=== PATIENT | male | born 1965 | race Caucasian/White ===

== ENCOUNTER 2017-04-18 10:29 | Emergency (ER) | payer OTHER ==
[2017-04-18 10:34] VITALS: TEMP 98.6; BMI 23.7
--- NOTE | 2017-04-18 10:44 | PDOC ---
History of Present Illness - General Chief Complaint: Redness To Affected Area Stated Complaint: RT 3RD TOE REDNESS, SWELLING Time Seen by Provider: 04/18/17 10:34 History Source: Patient Exam Limitations: No Limitations - History of Present Illness Initial Comments: 04/18/17 10:39 51 yo male wtih h/o dM here with c/o right third toe infection. states has nueropathy, and bought new shoes recently. today took shoe off and noticed redness and swelling right third toe. has small ulcer on bottom of toe. no f/c. no change to medications. saw pcp dr Leon today who was hesitant to start abx as pt has had recent gi issues. last saw slip mixer on monday ( 4 days ago) had colonoscopy and was diagnosed with polyps. has been on intermittent abx for colitis with mucous or pus. no abd pain. no other complaints. redness limited to toe.. Past History - Past Medical History Allergies/Adverse Reactions: Allergies Allergy/AdvReac Type Severity Reaction Status Date / Time lamotrigine [From Lamictal] Allergy Rash Verified 04/18/17 10:46 Home Medications: Ambulatory Orders Aspirin [ASA -] 325 mg PO DAILY 04/18/17 Atorvastatin Ca [Lipitor] 40 mg PO HS 04/18/17 Clindamycin [Cleocin -] 300 mg PO TID #1 capsule 04/18/17 Clonazepam [KlonoPIN] 0.25 mg PO BID 04/18/17 Escitalopram Oxalate [Lexapro -] 20 mg PO DAILY 04/18/17 Gabapentin 300 mg PO TID 04/18/17 Insulin Aspart [Novolog] unit SQ TID 04/18/17 Insulin Glargine,Hum.rec.anlog [Lantus (nf)] 65 units SQ DAILY 04/18/17 Labetalol HCl [Normodyne -] 300 mg PO BID 04/18/17 Lisinopril/Hydrochlorothiazide [Lisinopril-Hctz 20-25 mg Tab] 1 each PO DAILY Trazodone HCl 100 mg PO BID 04/18/17 Anemia: No Asthma: No Cancer: No Cardiac Disorders: No Hx Myocardial Infarction: No CVA: Yes Diabetes: Yes HTN: Yes - Surgical History Appendectomy: Yes - Psycho/Social/Smoking Cessation Hx Anxiety: No Suicidal Ideation: No Smoking History: Never smoked Information on smoking cessation initiated: No Hx Alcohol Use: No Review of Systems - Review of Systems Constitutional: No: Chills, Diaphoresis HEENTM: No: Eye Pain, Blurred Vision Respiratory: No: Cough, Orthopnea Cardiac (ROS): No: Chest Pain, Edema ABD/GI: Yes: Diarrhea : No: Burning, Dysuria Integumentary: Yes: Other (toe redness , ulceration). No: Bruising, Change in Color All Other Systems: Reviewed and Negative *Physical Exam - Vital Signs Last Vital Signs Temp Pulse Resp BP Pulse Ox 98.6 F 87 18 164/100 98 04/18/17 10:30 04/18/17 10:30 04/18/17 10:30 04/18/17 10:30 04/18/17 10:30 - Physical Exam General Appearance: Yes: Appropriately Dressed HEENT: positive: CHLESEA Neck: positive: Trachea midline Respiratory/Chest: positive: Lungs Clear, Normal Breath Sounds. negative: Chest Tender, Respiratory Distress Cardiovascular: positive: Regular Rhythm, Regular Rate, S1, S2. negative: Edema Gastrointestinal/Abdominal: positive: Normal Bowel Sounds, Flat, Soft. negative : Tender Extremity: positive: Normal Capillary Refill, Normal Inspection, Other (right third toe with erythema to mcp joint, no exudate. small superficial ulceration tip, no exudate. ) Integumentary: positive: Normal Color, Dry, Warm, Erythema, Other (erythema to right third toe. ) Neurologic: positive: Fully Oriented, Alert, Normal Mood/Affect ED Treatment Course - LABORATORY CBC & Chemistry Diagram: 04/18/17 10:50 04/18/17 10:50 - RADIOLOGY Radiology Studies Ordered: Category Date Time Status FOOT-RIGHT [RAD] Stat Radiology 04/18/17 10:35 Ordered Medical Decision Making - Medical Decision Making 04/18/17 10:44 51 yo DM her with toe redness. differential cellulitis vs. osteo, early ulceration. plan abx, labs xray r/o osteo. britt outpt abx with podiatry followup 04/18/17 12:49 pt labs unremarkable. except sugar 350. wbc normal. afebrile. plan tx clindamycin 900mg. d/w pcp DR Leon, who can see pt for wound check in 48 hours. also has number for podiatry for followup. xray negative for sx of osteo. rpt sugar after insulin 275 04/18/17 12:55 04/18/17 14:18 *DC/Admit/Observation/Transfer Diagnosis at time of Disposition: Cellulitis - Discharge Dispostion Disposition: HOME Condition at time of disposition: Improved - Prescriptions Prescriptions: Clindamycin [Cleocin -] 300 mg PO TID #1 capsule - Referrals Referrals: Amish Leon [Non Staff, Medical] - - Patient Instructions Printed Discharge Instructions: Cellulitis Additional Instructions: you need to follow up with Dr Leon, within 48 hours. go for appointment on Monday04/20/17. call today to confirm [phone]. let them know you were seen in the emergency room and Dr. Leon wants to see you on 04/20/17. take antiobiotic clindamycin 300 mg three times daily x 7 days. return for fever. worsening redness or any concerns. you should soak your feet in warm soapy water twice daily. wear loose fitting shoe. and check toes daily. you also need to see a cast iron dipper. call to schedule followup this week. return for any worsening redness, foul drainage or any concerns.
[2017-04-18 11:13] LABS: EOSINOPHIL 1.1 % (0-4.5); MCH 28.8 pg (25.7-33.7); MCHC 33.9 g/dl (32.0-35.9); MEAN PLT VOLUME 9.2 fl (7.5-11.1); NEUTROPHILS 66.3 % (42.8-82.8); PLATELET COUNT 250 K/MM3 (134-434); RDW 12.8 % (11.9-15.9); WHITE BLOOD COUNT 6.6 K/mm3 (4.0-10.8)
[2017-04-18 11:41] LABS: ALBUMIN 2.5 g/dl (3.5-5.0); ALK PHOS 309 U/L (32-92); ANION GAP 8 (8-16); BILIRUBIN,TOTAL 0.5 mg/dl (0.2-1.0); CALCIUM 8.5 mg/dl (8.4-10.2); CO2 28 mmol/L (22-28); CREATININE 1.1 mg/dl (0.6-1.3); SGOT/AST 29 U/L (10-42); SGPT/ALT 44 U/L (10-40); TOT PROT 5.7 g/dl (6.4-8.3)
[2017-04-18 11:42] LABS: GLUCOSE,RANDOM 348 mg/dl (74-106)
[2017-04-18] MEDS ORDERED: SODIUM CHLORIDE 0.9% 1000 ML INFUS.BAG IV ONE (11:55)
[2017-04-18] MEDS ORDERED: HEMOQUE TEST 1 EACH EACH ONE ×3 (12:40→14:02)
[2017-04-18] MEDS ORDERED: INSULIN (NOVOLOG) ASPART 100 UNITS/ML 10ML VIAL SQ ONE (13:01)
[2017-04-18] MEDS ORDERED: INSULIN (NOVOLOG) ASPART 100 UNITS/ML 10ML VIAL ONE (13:04)
[2017-04-18] MEDS ORDERED: CLINDAMYCIN PHOSPHATE 600 MG/4 ML VIAL ONE (13:12)
[2017-04-18] MEDS ORDERED: CLINDAMYCIN 600MG PREMIX IVPB 50 ML IVPB ONE (13:19)
[2017-04-18 14:35] VITALS: BP 129/76; PULSE 79
== END 2017-04-18 14:35 | disposition home or self-care (01) ==
LOC: FER 10:29
PROC: 3E0337Z Introduction of Electrolytic and Water Balance Substance into Peripheral Vein, Percutaneous Approach (ICD-10-PCS; principal; 2017-04-18)
PROC: 3E03329 Introduction of Other Anti-infective into Peripheral Vein, Percutaneous Approach (ICD-10-PCS; 2017-04-18)
PROC: 3E013VG Introduction of Insulin into Subcutaneous Tissue, Percutaneous Approach (ICD-10-PCS; 2017-04-18)
DX: L03.90 Cellulitis, unspecified (principal)
CPT/HCPCS: 36415; 73630-TC-RT; 80053; 85025; 87040; 96365; 96372; 99284-25

== ENCOUNTER 2017-05-12 18:49 | Emergency (ER) | payer OTHER ==
[2017-05-12 19:14] VITALS: TEMP 98.7; BMI 23.7
--- NOTE | 2017-05-12 19:44 | PDOC ---
History of Present Illness - General History Source: Patient Exam Limitations: No Limitations - History of Present Illness Initial Comments: 05/12/17 19:45 The patient is a 51 year old male with history of stroke with residual left sided weakness, substance abuse, who presents to the ED complaining of left shoulder pain that began last night. Patient reports he had been drinking last night when he fell backwards and landed on his left shoulder. He subsequently developed left shoulder pain that is worse with overhead motion. He states he has history of soft tissue injuries in this shoulder. The patient denies any head trauma or neck injury. He denies acute LUE numbness or tingling. <Radha Oropeza - Last Filed: 05/12/17 20:23> <Carina Veliz - Last Filed: 05/12/17 22:08> - General Chief Complaint: Injury Stated Complaint: LEFT SHOULDER INJURY Time Seen by Provider: 05/12/17 19:35 Past History <Radha Oropeza - Last Filed: 05/12/17 20:23> - Past Medical History Anemia: No Asthma: No Cancer: No Cardiac Disorders: No CVA: Yes Diabetes: Yes HTN: Yes - Surgical History Appendectomy: Yes - Suicide/Smoking/Psychosocial Hx Smoking History: Never smoked Information on smoking cessation initiated: No Hx Alcohol Use: (occasional) <Carina Veliz - Last Filed: 05/12/17 22:08> - Past Medical History Allergies/Adverse Reactions: Allergies Allergy/AdvReac Type Severity Reaction Status Date / Time lamotrigine [From Lamictal] Allergy Rash Verified 05/12/17 18:50 Home Medications: Ambulatory Orders Aspirin [ASA -] 325 mg PO DAILY 04/18/17 Atorvastatin Ca [Lipitor] 40 mg PO HS 04/18/17 Clindamycin [Cleocin -] 300 mg PO TID #1 capsule 04/18/17 Clonazepam [KlonoPIN] 0.25 mg PO BID 04/18/17 Escitalopram Oxalate [Lexapro -] 20 mg PO DAILY 04/18/17 Gabapentin 300 mg PO TID 04/18/17 Insulin Aspart [Novolog] unit SQ TID 04/18/17 Insulin Glargine,Hum.rec.anlog [Lantus (nf)] 70 units SQ DAILY 04/18/17 Labetalol HCl [Normodyne -] 300 mg PO BID 04/18/17 Lisinopril/Hydrochlorothiazide [Lisinopril-Hctz 20-25 mg Tab] 1 each PO DAILY Trazodone HCl 100 mg PO BID 04/18/17 Oxycodone HCl/Acetaminophen [Percocet 5/325 -] 1 tab PO Q6H #20 tablet MDD 4 Review of Systems - Review of Systems Able to Perform ROS?: Yes Comments:: 05/12/17 19:59 GENERAL/CONSTITUTIONAL: No fever or chills. No weakness. HEAD, EYES, EARS, NOSE AND THROAT: No change in vision. No ear pain or discharge. No sore throat. CARDIOVASCULAR: +Chronic left hand and forearm edema. No chest pain or shortness of breath. RESPIRATORY: No cough, wheezing, or hemoptysis. GASTROINTESTINAL: No nausea, vomiting, diarrhea or constipation. GENITOURINARY: No dysuria, frequency, or change in urination. MUSCULOSKELETAL: +Left shoulder pain. No left elbow. No neck or back pain. SKIN: No rash NEUROLOGIC: No headache, vertigo, loss of consciousness, or acute change in strength/sensation. ENDOCRINE: No increased thirst. No abnormal weight change. HEMATOLOGIC/LYMPHATIC: No anemia, easy bleeding, or history of blood clots. ALLERGIC/IMMUNOLOGIC: No hives or skin allergy. <Radha Oropeza - Last Filed: 05/12/17 20:23> *Physical Exam - Vital Signs Last Vital Signs Temp Pulse Resp BP Pulse Ox 98.7 F 98 H 18 197/120 97 05/12/17 18:50 05/12/17 18:50 05/12/17 18:50 05/12/17 18:50 05/12/17 18:50 - Physical Exam Comments: 05/12/17 20:07 GENERAL: Awake, alert, and fully oriented, in no acute distress HEAD: No signs of trauma EYES: PERRLA, EOMI, sclera anicteric, conjunctiva clear ENT: Auricles normal inspection, hearing grossly normal, nares patent, oropharynx clear without exudates. Moist mucosa NECK: Normal ROM, supple, no lymphadenopathy, JVD, or masses LUNGS: Breath sounds equal, clear to auscultation bilaterally. No wheezes, and no crackles HEART: Regular rate and rhythm, normal S1 and S2, no murmurs, rubs or gallops ABDOMEN: Soft, nontender, normoactive bowel sounds. No guarding, no rebound. No masses EXTREMITIES: LUE: +Pain reproduced with overhead motion, pronation and supination of the limb. No swelling, no tenderness to palpation. Chronic edema of the hand and forearm, unchanged. All other extremities: Normal range of motion, no edema. No clubbing or cyanosis. No cords, erythema, or tenderness NEUROLOGICAL: Normal speech, normal gait SKIN: Warm, Dry, normal turgor. <Radha Oropeza - Last Filed: 05/12/17 20:23> - Vital Signs Last Vital Signs Temp Pulse Resp BP Pulse Ox 98.7 F 98 H 18 197/120 97 05/12/17 18:50 05/12/17 18:50 05/12/17 18:50 05/12/17 18:50 05/12/17 18:50 <Carina Veliz - Last Filed: 05/12/17 22:08> ED Treatment Course - RADIOLOGY Radiology Studies Ordered: 05/12/17 20:23 Left shoulder x-ray, read and reviewed by Dr. Mosquera. Impression: Minimally displaced fracture in the left humeral neck. <Radha Oropeza - Last Filed: 05/12/17 20:23> Medical Decision Making - Medical Decision Making 05/12/17 22:05 Pt has had issues with alcohol on and off and today pt is neither drunk nor in withdrawal. He suffers with DM and is s/p stroke and has HTN. He states that he drank a lot last night and fell backward and landed on his left arm behind his back, heard a crack and now has pain over the aneroir shoul;mile. Pt sees Dr. Shantal brand and he goes to physical rehab in this hospital for residual left upper extemitiy weakness from his CVA. Pt has a left humkeral head fracture and he will be placed in a sling for 2 weeks. Pt will follow with his rehab appointment as previously scheduled on Monday and he will follow with his orthopediat Dr. Murguia. Percocet given for pain. Pt understands that he can take tylenol or motrin at other times. We treated pt with BP meds, as he forgot to take his meds today. <Carina Veliz - Last Filed: 05/12/17 22:08> *DC/Admit/Observation/Transfer - Attestations Scribe Attestion: 05/12/17 20:10 Documentation prepared by Radha Oropeza, acting as medical equipment repair technician for Carina Veliz MD. <Radha Oropeza - Last Filed: 05/12/17 20:23> <Carina Veliz - Last Filed: 05/12/17 22:08> Diagnosis at time of Disposition: Fracture of humeral head, closed - Discharge Dispostion Disposition: HOME Condition at time of disposition: Stable - Prescriptions Prescriptions: Oxycodone HCl/Acetaminophen [Percocet 5/325 -] 1 tab PO Q6H #20 tablet MDD 4 - Referrals Referrals: Amish Leon [Primary Care Provider] - - Patient Instructions Printed Discharge Instructions: DI for Humeral Fracture
[2017-05-12] MEDS ORDERED: LABETALOL HCL 100 MG TABLET (FP) PO ONE (19:46)
[2017-05-12] MEDS ORDERED: LISINOPRIL 5 MG TABLET (FP) ONE (19:56)
[2017-05-12 21:05] VITALS: BP 158/101; PULSE 78
[2017-05-12] MEDS ORDERED: LISINOPRIL 20 MG TABLET (FP) PO SCH (22:00)
== END 2017-05-12 21:08 | disposition home or self-care (01) ==
LOC: FER 18:49 → SUPCPDRO 18:49 → FER 21:08
DX: S42.292A Other displaced fracture of upper end of left humerus, initial encounter for closed fracture (principal); W19.XXXA Unspecified fall, initial encounter; Y93.89 Activity, other specified; Y92.9 Unspecified place or not applicable; I10 Essential (primary) hypertension; E11.9 Type 2 diabetes mellitus without complications; F10.10 Alcohol abuse, uncomplicated
CPT/HCPCS: 73030-TC-LT; 99283-25